=== PATIENT | male | born 1945 ===

== ENCOUNTER 2021-07-22 07:50 | Day surgery (SDC) | payer MEDICARE, OTHER ==
[~2021-07-22] VITALS: Ht 170.2 cm; Wt 91.5 kg
[2021-07-22] VITALS (7 sets, daily range): BP systolic 143–183; BP diastolic 63–76; PULSE 65–73; TEMP 98.8–99
[2021-07-22] MEDS ORDERED: MOBIC15 MG PO (09:19)
[2021-07-22] MEDS ORDERED: NORVASC 10MG10 MG PO (09:20)
[2021-07-22] MEDS ORDERED: SYNTHROID0.075 MG/T PO (09:20)
[2021-07-22] MEDS ORDERED: ALDACTONE 25MG25 M1 PO (09:21)
[2021-07-22] MEDS ORDERED: ASPIRIN 81M81 MG/TA2 PO (10:39)
[2021-07-22] MEDS ORDERED: NORCO 325 MG-51 TAB PO (12:12)
--- NOTE | 2021-07-22 12:55 | NUR ---
Patient returns to room 6 per cart from PACU accompanied by Rachel MARTE and is awake and alert. Dressing to umbilicus dry. Bandaids x3 on abdominal incisional sites CDI. IV fluids infusing. Scrotal support in place. Temp 98.8 and room air sats 95%. Spouse in room. Call light in reach. Allowed to rest.
--- NOTE | 2021-07-22 13:10 | NUR ---
Resting and denies pain or nausea. IV fluids. Taking ice chips.
--- NOTE | 2021-07-22 13:25 | NUR ---
Taking sips of water and continues to deny pain or nausea. Spouse in room. Call light in reach.
--- NOTE | 2021-07-22 13:55 | NUR ---
Eating pudding. Rates pain at 3/10.
--- NOTE | 2021-07-22 13:55 | NUR ---
Offers no complaints of pain or nausea. Dressings on abdomen remain clean and dry.
--- NOTE | 2021-07-22 14:10 | NUR ---
Was medicated with Aston 5mg one tab for incisional discomfort. IV to INT. Assisted up to the bathroom and gait is steady.
--- NOTE | 2021-07-22 14:30 | NUR ---
INT discontinued. Dresses self. States he is ready to go home.
--- NOTE | 2021-07-22 14:37 | NUR ---
Dismissal instructions given and voices understanding of these. Provided office follow up appointment date and time in [place].
--- NOTE | 2021-07-22 14:40 | NUR ---
Patient dismissed to home driven by spouse and taken to the front door per wheelchair and assisted into vehicle with instructions in hand.
== END 2021-07-22 14:40 | disposition home or self-care (01) ==
LOC: SDCO 07:50
DX: K40.91 Unilateral inguinal hernia, without obstruction or gangrene, recurrent (principal); K42.9 Umbilical hernia without obstruction or gangrene; I10 Essential (primary) hypertension; E03.9 Hypothyroidism, unspecified; I25.10 Atherosclerotic heart disease of native coronary artery without angina pectoris; Z79.899 Other long term (current) drug therapy; Z79.82 Long term (current) use of aspirin; I25.2 Old myocardial infarction; I48.91 Unspecified atrial fibrillation; E78.5 Hyperlipidemia, unspecified; K21.9 Gastro-esophageal reflux disease without esophagitis; Z87.891 Personal history of nicotine dependence; M19.90 Unspecified osteoarthritis, unspecified site
CPT/HCPCS: C1781; J7120